=== PATIENT | female | born 1965 | race Caucasian/White ===

== ENCOUNTER 2017-12-20 15:27 | Emergency (ER) | payer OTHER, MEDICAID ==
[~2017-12-20] VITALS: Ht 172.7 cm; Wt 101.2 kg
[~2017-12-20 15:27] MED LIST: COMPAZINE10 MG PO; CYMBALTA60 MG PO; OXYCODONE HCL 55 MG PO; PHENERGAN25 M1 RECTAL; PREDNISONE 20 M20 MG PO; PRINIVIL20 MG PO; SYNTHROID100 MCG PO; TRAMADOL 50 MG50 MG PO; XARELTO15 MG PO
[2017-12-20 15:43] LABS: ABSOLUTE BASOPHILS 0.1 thou/uL (0.0-0.2); ABSOLUTE EOSINOPHILS 0.1 thou/uL (0.0-0.7); ABSOLUTE LYMPHOCYTES 2.2 thou/uL (0.8-5.3); ABSOLUTE MONOCYTES 0.6 thou/uL (0.0-1.2); ABSOLUTE NEUTROPHILS 7.7 thou/uL (1.6-8.1); EOSINOPHILS 1.3 %; HEMATOCRIT 38.9 % (37.0-47.0); LYMPHOCYTES 20.7 %; MCH 28.2 pg (26.0-34.0); MCHC 33.5 g/dL (28.0-37.0); MCV 84.2 fL (80.0-100.0); MONOCYTES 5.9 %; MPV 7.5 fl. (7.2-11.1); NUCLEATED RBCS 0 /100WBC; PLATELET COUNT* 338 thou/uL (150-400); POLYS 71.1 %; RBC 4.62 mil/uL (4.20-5.00); RDW-CV 14.7 % (10.5-14.5); WBC 10.8 thou/uL (4.0-11.0)
[2017-12-20] MEDS ORDERED: BENTYL 10 MG CA10 MG PO (15:43)
[2017-12-20 15:50] LABS: CALCIUM 8.4 mg/dL (8.5-10.1); CREATININE 0.9 mg/dL (0.6-1.3); POTASSIUM 3.5 mmol/L (3.5-5.1)
[2017-12-20 15:55] LABS: ALBUMIN 3.4 g/dL (3.4-5.0); TOTAL BILIRUBIN 0.2 mg/dL (<0.1-1.0); TOTAL PROTEIN 7.5 g/dL (6.4-8.2)
[2017-12-20 16:52] LABS: URINE BILIRUBIN NEGATIVE (Negative); URINE BLOOD TRACE (Negative); URINE CLARITY CLEAR; URINE COLOR YELLOW; URINE GLUCOSE-RANDOM NEGATIVE (Negative); URINE KETONES TRACE (Negative); URINE LEUKOCYTES-REFLEX 1+ (Negative); URINE PROTEIN 2+ (Negative); URINE SPECIFIC GRAVITY 1.025 (1.005-1.030); URINE UROBILINOGEN 0.2 E.U./dl (0.2-1.0)
[2017-12-20 17:03] LABS: URINE NITRITE-REFLEX POSITIVE (Negative)
[2017-12-20 17:05] LABS: BACTERIA-REFLEX >30 Many /HPF (None Seen); CASTS None Seen /LPF (None Seen); CRYSTALS None Seen /LPF (None Seen); MUCUS 4-6 Moderate strn/LPF (None Seen); SQUAMOUS 4-10 Moderate /LPF (0-3); URINE RBC 3-10 Few /HPF (0-2); URINE WBC-REFLEX >25 Many /HPF (0-5)
[2017-12-20] MEDS ORDERED: PROMETHAZINE HC25 M1 PO (17:08)
[2017-12-20] MEDS ORDERED: BENTYL 20 MG TA20 M1 PO (17:08)
[2017-12-20] MEDS ORDERED: MACROBID 100 M100 M2 PO (17:08)
[2017-12-20 17:25] VITALS: BP 119/80
--- NOTE | 2017-12-21 10:28 | EKG ---
[place] [address] ELECTROCARDIOGRAM REPORT Name: LUCY ORTIZ [id number] Admission: 12/20/17 Attend Phys: Discharge: 12/20/17 Date of : 69 Report #: [id number] THIS REPORT FOR: //name// [facility] ED Test Date: 2017-12-20 Test Time: 15:41:02 Pat Name: LUCY ORTIZ Department: Room: Gender: F [employer]: LINDSAY : 1965 Requested By: Aisha Villasenor Order Number: [id number] MD: Fernie Mcfarland Measurements Intervals [place] Rate: 83 P: [place]: QRS: 61 QRSD: 93 T: 58 QT: 393 QTc: 462 Interpretive Statements sinus rhythm nonspecific t wave changes No previous ECG available for comparison Electronically Signed On 12-21-2017 10:27:51 CDT by Fernie Mcfarland [email or web address] <ELECTRONICALLY SIGNED> By: Fernie Mcfarland MD, [facility] 12/21/17 1027 1541 1541 Fernie Mfcarland MD, FACC /EPI
[2018-02-09] MEDS ORDERED: MOBIC7.5 MG PO (17:41)
[2018-02-09] MEDS ORDERED: NORCO 5-325 TA1 EACH PO (17:43)
[2018-03-06] MEDS ORDERED: TRAMADOL 50 MG50 MG PO (12:38)
== END 2017-12-20 17:25 | disposition home or self-care (01) ==
LOC: M.ERS 15:27
PROVIDERS: Nurse Practitioner
DX: N39.0 Urinary tract infection, site not specified (principal); R11.2 Nausea with vomiting, unspecified; I10 Essential (primary) hypertension; E03.9 Hypothyroidism, unspecified; Z90.710 Acquired absence of both cervix and uterus